=== PATIENT | female | born 1950 | race Two or more races ===

== ENCOUNTER 2019-05-08 13:45 | Emergency (ER) | payer OTHER ==
[~2019-05-08] VITALS: Ht 152.4 cm; Wt 80.7 kg
[2019-05-08] MEDS ORDERED: COZAAR50 MG (14:03)
[2019-05-08] MEDS ORDERED: LASIX20 MG PO (14:04)
== END 2019-05-08 15:34 | disposition home or self-care (01) ==
LOC: ER 13:45
DX: S20.211A Contusion of right front wall of thorax, initial encounter (principal); W18.09XA Striking against other object with subsequent fall, initial encounter; Y93.89 Activity, other specified; Y92.89 Other specified places as the place of occurrence of the external cause; Y99.8 Other external cause status